=== PATIENT | female | born 1990 | race African-American/Black ===

== ENCOUNTER 2022-07-03 15:59 | Emergency (ER) | payer OTHER, SELFPAY | END 2022-07-03 17:44 | disposition left against medical advice (07) | LOC: CSHERS 15:59 | DX: S10.96XA Insect bite of unspecified part of neck, initial encounter (principal); E11.9 Type 2 diabetes mellitus without complications; I10 Essential (primary) hypertension; Z79.84 Long term (current) use of oral hypoglycemic drugs; W57.XXXA Bitten or stung by nonvenomous insect and other nonvenomous arthropods, initial encounter | CPT/HCPCS: 99282 ==

== ENCOUNTER 2023-07-04 17:03 | Emergency (ER) | payer OTHER, SELFPAY ==
[2023-07-04] MEDS ORDERED: Fluorescein Opthalmic Strip ONE (18:12)
[2023-07-04] MEDS ORDERED: Proparacaine 0.5% Opth 15 ML BOT ONE (18:12)
== END 2023-07-04 18:46 | disposition home or self-care (01) ==
LOC: CSHERS 17:03
DX: H57.89 Other specified disorders of eye and adnexa (principal); H53.8 Other visual disturbances; I10 Essential (primary) hypertension
CPT/HCPCS: 99283